=== PATIENT | female | born 1970 | race Caucasian/White ===

== ENCOUNTER 2016-12-14 20:35 | Emergency (ER) | payer MEDICAID, OTHER ==
[~2016-12-14] VITALS: Ht 157.5 cm; Wt 90.0 kg
[~2016-12-14 20:35] MED LIST: GLUC1000 PO; IBUP800T23 PO; LISI-360 PO
[2016-12-14 20:47] VITALS: BP 141/93; PULSE 106; RESP 18; TEMP 98; O2SAT 97
[2016-12-14] MEDS ORDERED: METF1000 PO (20:56)
[2016-12-14] MEDS ORDERED: IBUP800T23 PO (20:56)
[2016-12-14] MEDS ORDERED: LISI10TA3 PO (20:56)
--- NOTE | 2016-12-14 21:26 | PD ---
HPI . right foot pain x 2 days Chief Complaint: Pain: Acute or Chronic Time Seen by Provider: 21:25 Travel History International Travel<30 days: No Contact w/Intl Traveler<30days: No Traveled to known affect area: No History of Present Illness HPI 46-year-old female with history of hypertension, diabetes, left bundle branch block and history of stress fractures here with complaints of right foot pain. Patient does not recall any type of mechanism of injury but is now complaining of right lateral foot pain that started 2 days ago. Pain is very intense, but she does not want any pain medications and is very adamant about this. She denies any other symptoms. She denies any chest pain, shortness of breath, fever, chills, nausea, vomiting, abdominal pain or other joint pain. She is accompanied by her . PFSH Past Medical History Hx Anticoagulant Therapy: No Depression: Yes Heart Rhythm Problems: No Cardiac Catheterization: No Cardiovascular Problems: Yes (HTN) High Cholesterol: Yes Chest Pain: Yes Congestive Heart Failure: No Diabetes: Yes (TYPE2) Patient Takes Glucophage: Yes Diminished Hearing: No Hypertension: Yes Kidney Stones: Yes Musculoskeletal: Yes (CHRONIC RIGHT FOOT PAIN) Respiratory: Yes (cold induced asthma) Immunizations Current: Yes Triglycerides - High: Yes ?: Not : 4 Para: 3 Miscarriage: 1 Ovarian Cysts: Yes Past Surgical History Cholecystectomy: Yes Coronary Artery Bypass Graft: No Oral Surgery: Yes (TMJ) Family History Family Hypercholesterolemia: Yes (PARENTS) Social History Alcohol Use: Yes (rare) Tobacco Use: Yes (1/2 PPD) Substance Use: No Allergies-Medications (Allergen,Severity, Reaction): Coded Allergies: Biaxin (Verified Allergy, Mild, FACIAL SWELLING, 12/14/16) Morphine (Verified Allergy, Mild, NAUSEA/VOMITING, 12/14/16) Neurontin (Verified Allergy, Mild, FACIAL SWELLING, 12/14/16) Reported Meds & Prescriptions Reported Meds & Active Scripts Active Reported Metformin (Metformin HCl) 1,000 Mg Tab 1,000 Mg PO BIDPC With meals Lisinopril 10 Mg Tab 10 Mg PO DAILY Ibuprofen 800 Mg Tab 800 Mg PO TID Review of Systems General / Constitutional: No: Fever Eyes: No: Visual changes HENT: No: Headaches Cardiovascular: No: Chest Pain or Discomfort Respiratory: No: Shortness of Breath Gastrointestinal: No: Abdominal Pain Genitourinary: No: Dysuria Musculoskeletal: Positive: Pain (right lateral foot pain) Skin: No Rash Neurologic: No: Weakness Psychiatric: No: Depression Endocrine: No: Polydipsia Hematologic/Lymphatic: No: Easy Bruising Physical Exam Narrative GENERAL: AAO x 3, no acute distress, Well-nourished, well-developed patient. SKIN: Warm and dry. No visible rashes. Ecchymosis on lateral foot. EYES: No scleral icterus. No injection or drainage. ENT: No nasal drainage noted. Mucous membranes pink. Airway patent. NECK: Supple, trachea midline. No JVD. CARDIOVASCULAR: Regular rate and rhythm without murmurs, gallops, or rubs. RESPIRATORY: Breath sounds equal bilaterally. No accessory muscle use. No rhonchi or rales. GASTROINTESTINAL: Abdomen soft, non-tender, nondistended. EXTREMITIES: No cyanosis. + ecchymosis of left lateral foot and point tenderness. very minimal edema. BACK: Nontender without obvious deformity. No CVA tenderness. PSYCH: AAO x 3, normal affect. Data Data Last Documented VS Vital Signs Date Time Temp Pulse Resp B/P Pulse Ox O2 Delivery O2 Flow Rate FiO2 12/14/16 20:47 98.0 106 18 141/93 97 Orders Acetaminophen (Tylenol) (12/14/16 21:30) Foot, Complete ([id number]) (12/14/16 21:30) Ed Urine Pregnancytest Poc (12/14/16 21:30) MDM Medical Decision Making Medical Screen Exam Complete: Yes Emergency Medical Condition: Yes Medical Record Reviewed: Yes Differential Diagnosis sprain, foot fracture, less likely cellulitis Narrative Course 46-year-old female with history of hypertension, diabetes, left bundle branch block and history of stress fractures here with complaints of right foot pain. Patient does not recall any type of mechanism of injury but is now complaining of right lateral foot pain that started 2 days ago. Pain is very intense, but she does not want any pain medications and is very adamant about this. She denies any other symptoms. She denies any chest pain, shortness of breath, fever, chills, nausea, vomiting, abdominal pain or other joint pain. She is accompanied by her . Patient seen and examined. Recommend x-ray of the foot with the ecchymosis, edema and point tenderness. Xray is negative. I discussed with patient. advised micki shashaap. SOFÍA. Patient verbalized understanding of instructions, questions were answered, and thanked me for their care. I advised them if their condition worsens, please return to the nearest emergency room for further care. Diagnosis Primary Impression: Foot pain, right Additional Impression: Foot sprain Qualified Code: S93.601A - Foot sprain, right, initial encounter Patient Instructions: Foot Sprain (ED), General Instructions Additional Instructions: Please return to emergency department if your symptoms return or worsen. Follow up with your primary care provider. Take medications as prescribed. You can continue to use your ibuprofen for pain and inflammation. You can use ice on this area as it may help. Do not ice for more than 20 minutes at a time. Disposition: 01 DISCHARGE HOME Condition: Stable Rayna Chadwick Dec 14, 2016 21:26
[2016-12-14] MEDS ORDERED: ACETAMINOPHEN 325 MG TAB PO ONE (21:30)
--- NOTE | 2016-12-14 22:47 | RADHPO ---
EXAM DATE/TIME: 12/14/2016 21:52 [facility] COMPARISON: FOOT RIGHT COMPLETE ([id number]), March 27, 2016, 2:28. INDICATIONS : Right foot pain for 2 days with no known injury MEDICAL HISTORY : None. SURGICAL HISTORY : Sesamoidectomy, bunionectomy ENCOUNTER: Initial ACUITY: 3 days PAIN SCORE: 9/10 LOCATION: Right anterior foot FINDINGS: Three view examination of the right foot demonstrates no soft tissue swelling, dislocation, or fractu re. The tarsal bones appear intact. The interphalangeal and metatarsophalangeal joints are intact. The calcaneus is intact. Bony mineralization is normal. CONCLUSION: No acute disease. No significant change has occurred. Charlie Bates MD on December 14, 2016 at 22:44 Board Certified Radiologist. This report was verified electronically.
== END 2016-12-14 23:01 | disposition home or self-care (01) ==
LOC: PHEFT 20:35
DX: M79.671 Pain in right foot (principal); S93.601A Unspecified sprain of right foot, initial encounter; I10 Essential (primary) hypertension; E11.9 Type 2 diabetes mellitus without complications; I44.7 Left bundle-branch block, unspecified; E78.1 Pure hyperglyceridemia; E78.00 Pure hypercholesterolemia, unspecified; F17.200 Nicotine dependence, unspecified, uncomplicated; X58.XXXA Exposure to other specified factors, initial encounter; Z79.84 Long term (current) use of oral hypoglycemic drugs; Z86.59 Personal history of other mental and behavioral disorders; Z86.79 Personal history of other diseases of the circulatory system; Z87.442 Personal history of urinary calculi; Z87.39 Personal history of other diseases of the musculoskeletal system and connective tissue; Z87.09 Personal history of other diseases of the respiratory system
CPT/HCPCS: 73630; 84703; 99283

== ENCOUNTER 2017-06-11 17:50 | Emergency (ER) | payer SELFPAY ==
[~2017-06-11] VITALS: Ht 157.5 cm; Wt 88.0 kg
[~2017-06-11 17:50] MED LIST changes: -GLUC1000 PO; -LISI-360 PO; +LISI10TA3 PO; +METF1000 PO
[2017-06-11 17:54] VITALS: BP 181/92; PULSE 116; RESP 16; TEMP 97.9; O2SAT 99
[2017-06-11] MEDS ORDERED: GLYB5TAB3 PO (18:04)
[2017-06-11] MEDS ORDERED: ASPIRIN 81 MG CHEW TAB PO ONE (18:15)
[2017-06-11] MEDS ORDERED: LORazepam 2 MG/ML VIAL IV PUSH PRN (18:15)
[2017-06-11] MEDS ORDERED: SODIUM CHLORIDE 0.9% FLUSH 10 ML FLUSH IVF PRN (18:15)
--- NOTE | 2017-06-11 18:17 | PD ---
HPI . Chest pain and shortness of breath Chief Complaint: Anxiety Time Seen by Provider: 18:06 Travel History International Travel<30 days: No Contact w/Intl Traveler<30days: No Traveled to known affect area: No History of Present Illness HPI This patient presents with the chief complaint of chest pain and shortness of breath. Onset was about a week ago. Symptoms come and go. She states that her symptoms seemed be worse when she lays down and better when she sits up. She believes that her symptoms are caused from stress. Chest pain is described as a pressure-like sensation. She rates the pain 3/10. PFSH Past Medical History Hx Anticoagulant Therapy: No Depression: Yes Heart Rhythm Problems: No Cardiac Catheterization: No Cardiovascular Problems: Yes (HTN) High Cholesterol: Yes Chest Pain: Yes Congestive Heart Failure: No Diabetes: Yes (TYPE2) Patient Takes Glucophage: Yes Diminished Hearing: No Hypertension: Yes Kidney Stones: Yes Musculoskeletal: Yes (CHRONIC RIGHT FOOT PAIN) Respiratory: Yes (cold induced asthma) Immunizations Current: Yes Triglycerides - High: Yes Influenza Vaccination: No ?: Not LMP: 04/2017 : 4 Para: 3 Miscarriage: 1 Ovarian Cysts: Yes Past Surgical History Cholecystectomy: Yes Coronary Artery Bypass Graft: No Oral Surgery: Yes (TMJ) Family History Family Hypercholesterolemia: Yes (PARENTS) Social History Alcohol Use: Yes (rare) Tobacco Use: Yes (1/2 PPD) Substance Use: No Allergies-Medications (Allergen,Severity, Reaction): Coded Allergies: clarithromycin (Unverified Allergy, Mild, FACIAL SWELLING, 06/11/17) gabapentin (Unverified Allergy, Mild, FACIAL SWELLING, 06/11/17) morphine (Unverified Allergy, Mild, NAUSEA/VOMITING, 06/11/17) Reported Meds & Prescriptions Reported Meds & Active Scripts Active Reported Glyburide 5 Mg Tab 5 Mg PO DAILY Take with meals at the same time each day Metformin (Metformin HCl) 1,000 Mg Tab 1,000 Mg PO BIDPC With meals Lisinopril 10 Mg Tab 10 Mg PO DAILY Review of Systems Except as stated in HPI: all other systems reviewed are Neg General / Constitutional: No: Fever, Chills Cardiovascular: Positive: Chest Pain or Discomfort Respiratory: Positive: Shortness of Breath Psychiatric: Positive: Other (increased stress) Physical Exam Narrative GENERAL: Patient is lying on the stretcher with an increased respiratory rate. SKIN: Warm and dry. HEAD: Atraumatic. Normocephalic. EYES: Pupils equal and round. Extraocular movements are intact. ENT: No nasal bleeding or discharge. Mucous membranes pink and moist. NECK: Trachea midline. Neck is supple. CARDIOVASCULAR: Sinus tachycardia. Heart sounds are normal. RESPIRATORY: No accessory muscle use. Lungs are clear with full air movement throughout. GASTROINTESTINAL: Abdomen soft, non-tender, nondistended. MUSCULOSKELETAL: No obvious deformities. No edema. NEUROLOGICAL: Awake and alert. No obvious cranial nerve deficits. Motor grossly within normal limits. Normal speech. PSYCHIATRIC: Appropriate mood and affect; insight and judgment normal. Data Data Last Documented VS Vital Signs Date Time Temp Pulse Resp B/P (MAP) Pulse Ox O2 Delivery O2 Flow Rate FiO2 06/11/17 18:29 105 20 142/62 (88) 98 Room Air 06/11/17 17:54 97.9 Orders Orders Basic Metabolic Panel (Bmp) (06/11/17 18:06) Ckmb (Isoenzyme) Profile (06/11/17 18:06) Complete Blood Count With Diff (06/11/17 18:06) D-Dimer (06/11/17 18:06) Magnesium (Mg) (06/11/17 18:06) Prothrombin Time / Inr (Pt) (06/11/17 18:06) Act Partial Throm Time (Ptt) (06/11/17 18:06) Troponin I (06/11/17 18:06) Chest, Single Ap (06/11/17 18:06) Ecg Monitoring (06/11/17 18:06) Iv Access Insert/Monitor (06/11/17 18:06) Oximetry (06/11/17 18:06) Aspirin Chew (Aspirin Chew) (06/11/17 18:15) Sodium Chloride 0.9% Flush (Ns Flush) (06/11/17 18:15) Lorazepam Inj (Ativan Inj) (06/11/17 18:15) Labs Laboratory Tests Test 06/11/17 18:18 White Blood Count 11.5 TH/MM3 Red Blood Count 4.95 MIL/MM3 Hemoglobin 14.3 GM/DL Hematocrit 42.1 % Mean Corpuscular Volume 85.1 FL Mean Corpuscular Hemoglobin 29.0 PG Mean Corpuscular Hemoglobin Concent 34.0 % Red Cell Distribution Width 13.1 % Platelet Count 315 TH/MM3 Mean Platelet Volume 7.9 FL Neutrophils (%) (Auto) 64.2 % Lymphocytes (%) (Auto) 28.5 % Monocytes (%) (Auto) 4.6 % Eosinophils (%) (Auto) 2.1 % Basophils (%) (Auto) 0.6 % Neutrophils # (Auto) 7.4 TH/MM3 Lymphocytes # (Auto) 3.3 TH/MM3 Monocytes # (Auto) 0.5 TH/MM3 Eosinophils # (Auto) 0.2 TH/MM3 Basophils # (Auto) 0.1 TH/MM3 CBC Comment DIFF FINAL Differential Comment Prothrombin Time 10.2 SEC Prothromb Time International Ratio 0.9 RATIO Activated Partial Thromboplast Time 26.0 SEC D-Dimer Quantitative (PE/DVT) 0.43 MG/L FEU Blood Urea Nitrogen 9 MG/DL Creatinine 0.98 MG/DL Random Glucose 378 MG/DL Calcium Level 9.2 MG/DL Magnesium Level 2.0 MG/DL Sodium Level 133 MEQ/L Potassium Level 4.3 MEQ/L Chloride Level 100 MEQ/L Carbon Dioxide Level 22.9 MEQ/L Anion Gap 10 MEQ/L Estimat Glomerular Filtration Rate 61 ML/MIN Total Creatine Kinase 40 U/L Troponin I LESS THAN 0.02 NG/ML MDM Medical Decision Making Medical Screen Exam Complete: Yes Emergency Medical Condition: Yes Medical Record Reviewed: Yes (the patient was evaluated for chest pain is 2003. She had an echocardiogram done which showed some mild left ventricular hypertrophy and an ejection fraction of 5560 percent. She had a negative nuclear stress test.) Interpretation(s) EKG shows sinus tachycardia with a left bundle branch block. She has unifocal PVCs. The EKG is unchanged from previous with the exception of tachycardia and frequent PVCs. Differential Diagnosis Differential diagnosis of chest pain includes but is not limited to musculoskeletal pain, pulmonary embolism, acute coronary syndrome, pneumonia, pleurisy Narrative Course This patient presents complaining with chest pain and shortness of breath. She does have risk factors for coronary artery disease including hypertension and diabetes. However, she has had a negative workup 3 years ago. She has had symptoms for a week. She relates some distress. A cardiac evaluation has been ordered. She will be given a dose of aspirin. She will also be given a dose of Ativan pending her workup. The patient is feeling much better following Ativan. This patient has had symptoms for a week. This makes the probability of ACS is low. CBC & BMP Diagram 06/11/17 18:18 Calcium Level 9.2, Magnesium Level 2.0 Cardiac enzymes are negative. Disposition has been discussed with the patient and with her . Everyone thinks that this is anxiety. I will discharge her to home with a prescription for Ativan. Diagnosis Primary Impression: Chest pain Qualified Codes: R07.9 - Chest pain, unspecified Additional Impressions: Type 2 diabetes mellitus Qualified Codes: E11.9 - Type 2 diabetes mellitus without complications Dyslipidemia Labile hypertension Situational anxiety Patient Instructions: Anxiety (DC), General Instructions Med/Other Pt SpecificInfo: Prescription(s) given Scripts Lorazepam (Ativan) 1 Mg Tab 1 MG PO Q6H Y for ANXIETY AND/OR AGITATION, #10 TAB 0 Refills Prov: Alexandra Balbuena MD 06/11/17 Disposition: 01 DISCHARGE HOME Condition: Stable Alexandra Balbuena MD Jun 11, 2017 18:17
[2017-06-11 18:19] VITALS: BP 208/101; PULSE 110; RESP 18; O2SAT 97
[2017-06-11 18:22] LABS: AUTOMATED NEUTROPHIL # 7.4 TH/MM3 (1.8-7.7); BASOPHIL # 0.1 TH/MM3 (0-0.2); BASOPHIL % 0.6 % (0.0-2.0); EOSINOPHIL # 0.2 TH/MM3 (0-0.4); EOSINOPHIL % 2.1 % (0.0-4.0); HEMATOCRIT 42.1 % (35.0-46.0); HEMO FLAGS DIFF FINAL; LYMPH % 28.5 % (9.0-44.0); LYMPHOCYTE # 3.3 TH/MM3 (1.0-4.8); MEAN CELL VOLUME 85.1 FL (80.0-100.0); MONO % 4.6 % (0.0-8.0); NEUT % 64.2 % (16.0-70.0); PLATELET COUNT 315 TH/MM3 (150-450); RED BLOOD COUNT 4.95 MIL/MM3 (4.00-5.30); RED CELL DISTRIBUTION WIDTH 13.1 % (11.6-17.2); WHITE BLOOD COUNT 11.5 TH/MM3 (4.0-11.0)
[2017-06-11 18:29] VITALS: BP 142/62; PULSE 105; RESP 20; O2SAT 98
[2017-06-11 18:30] LABS: CHLORIDE 100 MEQ/L (98-107); POTASSIUM 4.3 MEQ/L (3.5-5.1); SODIUM (NA) 133 MEQ/L (136-145)
[2017-06-11 18:33] LABS: ANION GAP 10 MEQ/L (5-15); BICARBONATE 22.9 MEQ/L (21.0-32.0); BLOOD UREA NITROGEN 9 MG/DL (7-18)
[2017-06-11 18:36] LABS: GLOMERULAR FILTRATION RATE 61 ML/MIN (>89)
[2017-06-11 18:37] LABS: INTERNATIONAL NORMALIZED RATIO 0.9 RATIO; PROTHROMBIN TIME - PATIENT 10.2 SEC (9.8-11.6)
[2017-06-11 18:50] LABS: CREATINE KINASE 40 U/L (26-192)
[2017-06-11 19:00] VITALS: BP 155/58; PULSE 114; RESP 20; O2SAT 98
[2017-06-11] MEDS ORDERED: LORA-474 PO (19:00)
--- NOTE | 2017-06-11 19:26 | RADRPT ---
EXAM DATE/TIME: 06/11/2017 19:01 [facility] COMPARISON: CHEST SINGLE AP, March 27, 2016, 2:41. INDICATIONS : Short of breath, chest pain MEDICAL HISTORY : Diabetes mellitus type II. Hypertension SURGICAL HISTORY : None. ENCOUNTER: Initial ACUITY: 1 week PAIN SCORE: 3/10 LOCATION: Bilateral chest FINDINGS: The heart is mildly prominent. Mild central pulmonary vascular congestion is noted. CONCLUSION: 1. Mild central pulmonary vascular congestion. 2. Mild cardiomegaly. Yang Kimbrough MD on June 11, 2017 at 19:23 Board Certified Radiologist. This report was verified electronically.
[2017-06-11 19:58] VITALS: BP 143/73; TEMP 98.3
--- NOTE | 2017-06-13 15:07 | EKG ---
Date Performed: 06/11/2017 Time Performed: 18:02:46 PTAGE: 46 years EKG: SINUS TACHYCARDIA WITH FREQUENT VENTRICULAR PREMATURE COMPLEXES LEFT BUNDLE BRANCH BLOCK AB NORMAL ECG PREVIOUS TRACING : 08/04/2015 13.25 Since the prior tracing, the sinus tachycardia and the freq uent PVCs are new. DOCTOR: Loida Mcdermott Interpretating Date/Time 06/13/2017 15:06:45
== END 2017-06-11 19:47 | disposition home or self-care (01) ==
LOC: PHED 17:50
DX: R07.9 Chest pain, unspecified (principal); E11.9 Type 2 diabetes mellitus without complications; E78.5 Hyperlipidemia, unspecified; I11.9 Hypertensive heart disease without heart failure; F41.9 Anxiety disorder, unspecified; I44.7 Left bundle-branch block, unspecified; I51.7 Cardiomegaly; Z87.442 Personal history of urinary calculi
CPT/HCPCS: 71010; 80048; 82550; 83735; 84484; 85025; 85379; 85610; 85730; 93005; 96374; 99285; J2060

== ENCOUNTER 2017-09-30 14:16 | Emergency (ER) | payer SELFPAY ==
[~2017-09-30] VITALS: Ht 157.5 cm; Wt 85.0 kg
[~2017-09-30 14:16] MED LIST changes: +GLYB5TAB3 PO; -IBUP800T23 PO; +LORA-474 PO
[2017-09-30 14:20] VITALS: BP 170/78; PULSE 105; RESP 12; TEMP 98.4; O2SAT 99
--- NOTE | 2017-09-30 15:14 | PD ---
HPI Chief Complaint: Eye Problems/Injury Time Seen by Provider: 14:40 Travel History International Travel<30 days: No Contact w/Intl Traveler<30days: No Traveled to known affect area: No History of Present Illness HPI 46-year-old female states that since yesterday her vision to her right eye on the outer part has had waves go across it. She also states that she feels nauseous. She denies any other concurrent complaints including vision loss, eye pain or other acute concerns. She states she went to an eye doctor and they said she may have a retinal detachment but they were not sure and advised her to come here. Duration is since yesterday. Quality is wave like feeling. PFSH Past Medical History Hx Anticoagulant Therapy: No Depression: Yes Heart Rhythm Problems: No Cardiac Catheterization: No Cardiovascular Problems: Yes (HTN, LBBB) High Cholesterol: Yes Chest Pain: Yes Congestive Heart Failure: No Diabetes: Yes (TYPE2) Diminished Hearing: No Hypertension: Yes Kidney Stones: Yes Musculoskeletal: Yes (CHRONIC RIGHT FOOT PAIN) Respiratory: Yes (cold induced asthma) Immunizations Current: Yes Triglycerides - High: Yes : 4 Para: 3 Miscarriage: 1 Ovarian Cysts: Yes Past Surgical History Cholecystectomy: Yes Coronary Artery Bypass Graft: No Oral Surgery: Yes (TMJ) Family History Family Hypercholesterolemia: Yes (PARENTS) Social History Alcohol Use: Yes (rare) Tobacco Use: Yes (1/2 PPD) Substance Use: No Allergies-Medications (Allergen,Severity, Reaction): Coded Allergies: clarithromycin (Unverified Allergy, Mild, FACIAL SWELLING, 09/30/17) gabapentin (Unverified Allergy, Mild, FACIAL SWELLING, 09/30/17) morphine (Unverified Allergy, Mild, NAUSEA/VOMITING, 09/30/17) Reported Meds & Prescriptions Reported Meds & Active Scripts Active Ativan (Lorazepam) 1 Mg Tab 1 Mg PO Q6H PRN Reported Ambien (Zolpidem Tartrate) 5 Mg Tab 5 Mg PO HS PRN Zoloft (Sertraline HCl) 50 Mg Tab 50 Mg PO HS Metformin (Metformin HCl) 1,000 Mg Tab 1,000 Mg PO BIDPC With meals Lisinopril 10 Mg Tab 10 Mg PO DAILY Review of Systems Except as stated in HPI: all other systems reviewed are Neg Physical Exam Narrative GENERAL: Well-nourished, well-developed patient. SKIN: Warm and dry. HEAD: Normocephalic and atraumatic. EYES: No injection or drainage. Pupils equal, extraocular movement intact ENT: No nasal drainage noted. NECK: Supple, trachea midline. CARDIOVASCULAR: Regular rate and rhythm RESPIRATORY: Breath sounds equal bilaterally. No accessory muscle use. GASTROINTESTINAL: Abdomen soft, non-tender, nondistended. EXTREMITIES: No edema. NEUROLOGICAL: Awake and alert. Motor and sensory grossly within normal limits. Normal speech. Data Data Last Documented VS Vital Signs Date Time Temp Pulse Resp B/P (MAP) Pulse Ox O2 Delivery O2 Flow Rate FiO2 09/30/17 15:37 92 14 159/91 (113) 96 Room Air 09/30/17 14:20 98.4 Orders Orders Ed Discharge Order (09/30/17 16:11) [facility] Medical Decision Making Medical Screen Exam Complete: Yes Emergency Medical Condition: Yes Medical Record Reviewed: Yes (pmh confirmed) Differential Diagnosis Retinal detachment, central artery occlusion, floaters, vitreous hemorrhage.... Narrative Course Emergency department ocular US was performed with patient consent. Linear probe was used without note of retinal detachment Will discuss with ophthalmology on-call given isolated to one eye and since yesterday with normal neuro exam here Patient updated and agrees to outpatient follow-up, given return instructions Physician Communication Physician Communication dr morales states no additional testing here and to have patient follow-up in office on Monday Diagnosis Primary Impression: Blurry vision, right eye Referrals: Milly Morales MD call for appointment monday Additional Instructions: return as needed, keep blood pressure log Med/Other Pt SpecificInfo: No Change to Meds Disposition: 01 DISCHARGE HOME Condition: Stable Jessie Mendenhall MD Sep 30, 2017 15:14
[2017-09-30] MEDS ORDERED: ZOLO50TA PO (15:35)
[2017-09-30] MEDS ORDERED: AMBI5TAB PO (15:35)
[2017-09-30 15:37] VITALS: BP 159/91; PULSE 92; RESP 14; O2SAT 96
== END 2017-09-30 16:30 | disposition home or self-care (01) ==
LOC: NEPC 14:16
DX: H53.8 Other visual disturbances (principal); F17.200 Nicotine dependence, unspecified, uncomplicated; E11.9 Type 2 diabetes mellitus without complications; I10 Essential (primary) hypertension; F32.9 Major depressive disorder, single episode, unspecified; Z79.84 Long term (current) use of oral hypoglycemic drugs
CPT/HCPCS: 99281

== ENCOUNTER 2017-10-14 10:22 | Emergency (ER) | payer SELFPAY ==
[~2017-10-14] VITALS: Ht 157.5 cm; Wt 85.0 kg
[~2017-10-14 10:22] MED LIST changes: +AMBI5TAB PO; -GLYB5TAB3 PO; +ZOLO50TA PO
[2017-10-14 10:25] VITALS: BP 148/89; PULSE 142; RESP 20; TEMP 98.6; O2SAT 97
--- NOTE | 2017-10-14 10:58 | PD ---
HPI Chief Complaint: Skin Problem Time Seen by Provider: 10:39 Travel History International Travel<30 days: No Contact w/Intl Traveler<30days: No Traveled to known affect area: No History of Present Illness HPI This 46-year-old female is complaining of an abscess on her right leg. She has a history of diabetes. She does get recurrent abscesses which she generally handles at home. This one is been present for several days without draining. She is on metformin 2000 mg daily. She says her sugars been high. She was noted to be quite tachycardic and she says that she tends to run a fast heart rate. PFSH Past Medical History Hx Anticoagulant Therapy: No Anxiety: Yes Depression: Yes Heart Rhythm Problems: No Cardiac Catheterization: No Cardiovascular Problems: Yes (HTN, LBBB) High Cholesterol: Yes Chest Pain: Yes Congestive Heart Failure: No Diabetes: Yes (TYPE2) Patient Takes Glucophage: Yes Diminished Hearing: No Hypertension: Yes Kidney Stones: Yes Musculoskeletal: Yes (CHRONIC RIGHT FOOT PAIN) Respiratory: Yes (cold induced asthma) Immunizations Current: Yes Triglycerides - High: Yes Influenza Vaccination: No ?: Not LMP: NOW : 4 Para: 3 Miscarriage: 1 Ovarian Cysts: Yes Past Surgical History Cholecystectomy: Yes Coronary Artery Bypass Graft: No Oral Surgery: Yes (TMJ) Family History Family Hypercholesterolemia: Yes (PARENTS) Social History Alcohol Use: No Tobacco Use: Yes (/2 PPD) Substance Use: No Allergies-Medications (Allergen,Severity, Reaction): Coded Allergies: clarithromycin (Unverified Allergy, Mild, FACIAL SWELLING, 10/14/17) gabapentin (Unverified Allergy, Mild, FACIAL SWELLING, 10/14/17) morphine (Unverified Allergy, Mild, NAUSEA/VOMITING, 10/14/17) Reported Meds & Prescriptions Reported Meds & Active Scripts Active Ativan (Lorazepam) 1 Mg Tab 1 Mg PO Q6H PRN Reported Zoloft (Sertraline HCl) 50 Mg Tab 50 Mg PO HS Metformin (Metformin HCl) 1,000 Mg Tab 1,000 Mg PO BIDPC With meals Lisinopril 10 Mg Tab 10 Mg PO DAILY Review of Systems General / Constitutional: No: Fever, Chills Eyes: No: Diploplia, Blurred Vision HENT: No: Headaches, Vertigo Cardiovascular: No: Chest Pain or Discomfort, Palpitations Respiratory: No: Cough, Shortness of Breath Gastrointestinal: No: Vomiting, Diarrhea Genitourinary: Positive: Frequency, No: Urgency Musculoskeletal: No: Arthralgias Skin: Positive Lumps Endocrine: No: Heat Intolerance, Cold Intolerance Hematologic/Lymphatic: No: Easy Bruising Physical Exam Narrative GENERAL: Well-developed female SKIN: Focused skin assessment warm/dry. HEAD: Atraumatic. Normocephalic. EYES: Pupils equal and round. No scleral icterus. No injection or drainage. ENT: No nasal bleeding or discharge. Mucous membranes pink and moist. NECK: Trachea midline. No JVD. CARDIOVASCULAR: Regular rate and rhythm. No murmur appreciated. RESPIRATORY: No accessory muscle use. Clear to auscultation. Breath sounds equal bilaterally. GASTROINTESTINAL: Abdomen soft, non-tender, nondistended. Hepatic and splenic margins not palpable. MUSCULOSKELETAL: No obvious deformities. No clubbing. No cyanosis. No edema. There is an erythematous swollen area on the upper portion of the medial right thigh consistent with abscess NEUROLOGICAL: Awake and alert. No obvious cranial nerve deficits. Motor grossly within normal limits. Normal speech. PSYCHIATRIC: Appropriate mood and affect; insight and judgment normal. Data Data Last Documented VS Vital Signs Date Time Temp Pulse Resp B/P (MAP) Pulse Ox O2 Delivery O2 Flow Rate FiO2 10/14/17 11:22 18 10/14/17 10:32 142 10/14/17 10:25 98.6 148/89 (108) 97 Orders Orders Complete Blood Count With Diff (10/14/17 10:47) Basic Metabolic Panel (Bmp) (10/14/17 10:47) Sodium Chlor 0.9% 1000 Ml Inj (Ns 1000 M (10/14/17 11:00) Sodium Chlor 0.9% 1000 Ml Inj (Ns 1000 M (10/14/17 11:00) Cefazolin 2 Gm Premix (Ancef 2 Gm Premix (10/14/17 11:00) Ondansetron Inj (Zofran Inj) (10/14/17 11:00) Hydromorphone Pf Inj (Dilaudid Pf Inj) (10/14/17 11:00) Hydromorphone Pf Inj (Dilaudid Pf Inj) (10/14/17 11:00) Lidocaine 1% Inj (50 Ml) (Xylocaine 1% I (10/14/17 11:00) Lidocaine 1% Inj (Xylocaine 1% Inj) (10/14/17 11:15) Lidocaine 1% Inj (Xylocaine 1% Inj) (10/14/17 11:15) Insulin Human Regular Inj (Novolin R Inj (10/14/17 11:45) Labs Laboratory Tests Test 10/14/17 10:55 White Blood Count 13.2 TH/MM3 Red Blood Count 5.17 MIL/MM3 Hemoglobin 14.8 GM/DL Hematocrit 44.7 % Mean Corpuscular Volume 86.4 FL Mean Corpuscular Hemoglobin 28.6 PG Mean Corpuscular Hemoglobin Concent 33.0 % Red Cell Distribution Width 13.0 % Platelet Count 353 TH/MM3 Mean Platelet Volume 8.1 FL Neutrophils (%) (Auto) 68.7 % Lymphocytes (%) (Auto) 19.5 % Monocytes (%) (Auto) 4.6 % Eosinophils (%) (Auto) 3.1 % Basophils (%) (Auto) 4.1 % Neutrophils # (Auto) 9.1 TH/MM3 Lymphocytes # (Auto) 2.6 TH/MM3 Monocytes # (Auto) 0.6 TH/MM3 Eosinophils # (Auto) 0.4 TH/MM3 Basophils # (Auto) 0.5 TH/MM3 CBC Comment DIFF FINAL Differential Comment Blood Urea Nitrogen 11 MG/DL Creatinine 0.67 MG/DL Random Glucose 275 MG/DL Calcium Level 9.0 MG/DL Sodium Level 133 MEQ/L Potassium Level 4.0 MEQ/L Chloride Level 101 MEQ/L Carbon Dioxide Level 20.7 MEQ/L Anion Gap 11 MEQ/L Estimat Glomerular Filtration Rate 95 ML/MIN [facility] Medical Decision Making Medical Screen Exam Complete: Yes Emergency Medical Condition: Yes Medical Record Reviewed: Yes Differential Diagnosis Differential includes abscess, uncontrolled diabetes, Narrative Course Blood sugar is 275. She's been given some insulin and IV fluids as well as an initial dose of Keflex. I&D of the abscess has been performed. Patient will be released with prescription for Keflex Diagnosis Primary Impression: Abscess of right thigh Scripts Cephalexin (Keflex) 500 Mg Capsule 500 MG PO QID for Infection for 7 Days, CAP 0 Refills Prov: Jeremy Crockett MD 10/14/17 Disposition: 01 DISCHARGE HOME Condition: Stable Jeremy Crockett MD Oct 14, 2017 10:58
[2017-10-14] MEDS ORDERED: ceFAZolin 2 GM PREMIX 50 ML IV ONE (11:00)
[2017-10-14] MEDS ORDERED: SODIUM CHLOR 0.9% 1000 ML INJ 1,000 ML IV ONE ×2 (11:00)
[2017-10-14] MEDS ORDERED: HYDROmorphone HCL PF 2 MG/ML VIAL IV PUSH ONE ×2 (11:00)
[2017-10-14] MEDS ORDERED: ONDANSETRON HCL 4 MG/2 ML VIAL IV PUSH ONE (11:00)
[2017-10-14] MEDS ORDERED: LIDOCAINE HCL 1% 50 ML VIAL INFIL ONE (11:00)
[2017-10-14 11:05] LABS: AUTOMATED NEUTROPHIL # 9.1 TH/MM3 (1.8-7.7); BASOPHIL # 0.5 TH/MM3 (0-0.2); BASOPHIL % 4.1 % (0.0-2.0); EOSINOPHIL # 0.4 TH/MM3 (0-0.4); EOSINOPHIL % 3.1 % (0.0-4.0); HEMATOCRIT 44.7 % (35.0-46.0); HEMOGLOBIN 14.8 GM/DL (11.6-15.3); LYMPH % 19.5 % (9.0-44.0); LYMPHOCYTE # 2.6 TH/MM3 (1.0-4.8); MEAN CELL VOLUME 86.4 FL (80.0-100.0); MEAN CORPUSCULAR HEMOGLOBIN 28.6 PG (27.0-34.0); MEAN PLATELET VOLUME 8.1 FL (7.0-11.0); MONO % 4.6 % (0.0-8.0); MONOCYTE # 0.6 TH/MM3 (0-0.9); NEUT % 68.7 % (16.0-70.0); PLATELET COUNT 353 TH/MM3 (150-450); RED BLOOD COUNT 5.17 MIL/MM3 (4.00-5.30); WHITE BLOOD COUNT 13.2 TH/MM3 (4.0-11.0)
[2017-10-14] MEDS ORDERED: LIDOCAINE HCL 1% 30 ML VIAL INFIL ONE (11:15)
[2017-10-14] MEDS ORDERED: LIDOCAINE HCL 1% 20 ML VIAL INFIL ONE (11:15)
[2017-10-14 11:26] LABS: BICARBONATE 20.7 MEQ/L (21.0-32.0)
[2017-10-14 11:29] LABS: CREATININE 0.67 MG/DL (0.50-1.00)
[2017-10-14] MEDS ORDERED: INSULIN HUMAN REGULAR 1,000 UNITS/10 ML VIAL SQ ONE (11:45)
--- NOTE | 2017-10-14 11:47 | PD ---
Physical Exam Date Seen by Provider: Oct 14, 2017 Narrative I was asked to perform an I and D of the right groin area. INCISION AND DRAINAGE OF ABSCESS: The area was prepped and was sterilely draped. A subcutaneous wheal of 1% Xylocaine without epinephrine with a total number 1 mL was used to anesthetize the area properly. A number 11 scalpel was used to make a 5-mm incision across the area of the abscess. The abscess was drained, complex loculations were broken down, and irrigated with normal saline. Quarter inch iodoform packing was placed in the wound. Sterile dressing applied. Patient advised to return to the emergency department in 1-2 days for wound check and packing removal. Advised to keep area clean and dry for 24 hours. Data Data Last Documented VS Vital Signs Date Time Temp Pulse Resp B/P (MAP) Pulse Ox O2 Delivery O2 Flow Rate FiO2 10/14/17 11:22 18 10/14/17 10:32 142 10/14/17 10:25 98.6 148/89 (108) 97 Orders Orders Complete Blood Count With Diff (10/14/17 10:47) Basic Metabolic Panel (Bmp) (10/14/17 10:47) Sodium Chlor 0.9% 1000 Ml Inj (Ns 1000 M (10/14/17 11:00) Sodium Chlor 0.9% 1000 Ml Inj (Ns 1000 M (10/14/17 11:00) Cefazolin 2 Gm Premix (Ancef 2 Gm Premix (10/14/17 11:00) Ondansetron Inj (Zofran Inj) (10/14/17 11:00) Hydromorphone Pf Inj (Dilaudid Pf Inj) (10/14/17 11:00) Hydromorphone Pf Inj (Dilaudid Pf Inj) (10/14/17 11:00) Lidocaine 1% Inj (50 Ml) (Xylocaine 1% I (10/14/17 11:00) Lidocaine 1% Inj (Xylocaine 1% Inj) (10/14/17 11:15) Lidocaine 1% Inj (Xylocaine 1% Inj) (10/14/17 11:15) Insulin Human Regular Inj (Novolin R Inj (10/14/17 11:45) Labs Laboratory Tests Test 10/14/17 10:55 White Blood Count 13.2 TH/MM3 Red Blood Count 5.17 MIL/MM3 Hemoglobin 14.8 GM/DL Hematocrit 44.7 % Mean Corpuscular Volume 86.4 FL Mean Corpuscular Hemoglobin 28.6 PG Mean Corpuscular Hemoglobin Concent 33.0 % Red Cell Distribution Width 13.0 % Platelet Count 353 TH/MM3 Mean Platelet Volume 8.1 FL Neutrophils (%) (Auto) 68.7 % Lymphocytes (%) (Auto) 19.5 % Monocytes (%) (Auto) 4.6 % Eosinophils (%) (Auto) 3.1 % Basophils (%) (Auto) 4.1 % Neutrophils # (Auto) 9.1 TH/MM3 Lymphocytes # (Auto) 2.6 TH/MM3 Monocytes # (Auto) 0.6 TH/MM3 Eosinophils # (Auto) 0.4 TH/MM3 Basophils # (Auto) 0.5 TH/MM3 CBC Comment DIFF FINAL Differential Comment Blood Urea Nitrogen 11 MG/DL Creatinine 0.67 MG/DL Random Glucose 275 MG/DL Calcium Level 9.0 MG/DL Sodium Level 133 MEQ/L Potassium Level 4.0 MEQ/L Chloride Level 101 MEQ/L Carbon Dioxide Level 20.7 MEQ/L Anion Gap 11 MEQ/L Estimat Glomerular Filtration Rate 95 ML/MIN MDM Supervised Visit with CEDRIC: No Additional Instruction: Follow up with your primary care physician within 2-3 days. If your symptoms persist or worsen, return to the emergency department. Keep area clean and dry. Change dressings daily. If bleeding starts again, applied pressure and elevate the area. If he developed increased redness, swelling, or pain return to the emergency department. Sheyla Luciano Oct 14, 2017 11:47
[2017-10-14] MEDS ORDERED: CEPH-460 PO (11:57)
[2017-10-14 12:05] VITALS: PULSE 99; RESP 18; O2SAT 98
[2017-10-14] MEDS ORDERED: DIFL150T PO (12:09)
[2017-10-15] MEDS ORDERED: BACT800T5 PO (10:16)
== END 2017-10-14 12:20 | disposition home or self-care (01) ==
LOC: PHED 10:22
DX: L02.415 Cutaneous abscess of right lower limb (principal); E11.9 Type 2 diabetes mellitus without complications; F41.9 Anxiety disorder, unspecified; F32.9 Major depressive disorder, single episode, unspecified; I10 Essential (primary) hypertension; E78.00 Pure hypercholesterolemia, unspecified; J45.909 Unspecified asthma, uncomplicated; E78.1 Pure hyperglyceridemia; Z87.442 Personal history of urinary calculi
CPT/HCPCS: 10061; 80048; 85025; 96365; 96372; 96375; 99284; J0690; J1170; J1815; J2405; J7030

== ENCOUNTER 2017-10-15 09:59 | Emergency (ER) | payer SELFPAY ==
[~2017-10-15] VITALS: Ht 157.5 cm; Wt 86.4 kg
[~2017-10-15 09:59] MED LIST changes: -AMBI5TAB PO; +CEPH-460 PO; +DIFL150T PO
[2017-10-15 10:02] VITALS: BP 151/77; PULSE 87; RESP 16; TEMP 98.5; O2SAT 99
[2017-10-15] MEDS ORDERED: BACT800T5 PO (10:16)
--- NOTE | 2017-10-15 10:16 | PD ---
HPI Chief Complaint: Wound/Suture/Staple Re-Check Time Seen by Provider: 10:07 Travel History International Travel<30 days: No Contact w/Intl Traveler<30days: No Traveled to known affect area: No History of Present Illness HPI 46 year old female presents to the emergency department for evaluation of abscess to the right thigh. Patient was seen yesterday when incision and drainage was completed. Packing was placed and patient was prescribed Keflex. She was told to return today for reevaluation. Patient states that the area feels better at this time. She denies any worsening symptoms. She reports mild pain that radiates down the leg. No fevers or chills. Current pain is 3 out of 10, aching. Patient denies any associated symptoms. No exacerbating or alleviating factors. Moderate severity. PFSH Past Medical History Hx Anticoagulant Therapy: No Anxiety: Yes Depression: Yes Heart Rhythm Problems: No Cardiac Catheterization: No Cardiovascular Problems: Yes (HTN, LBB) High Cholesterol: Yes Chest Pain: Yes Congestive Heart Failure: No Diabetes: Yes (Metformin) Diminished Hearing: No Hypertension: Yes Kidney Stones: Yes Musculoskeletal: Yes (CHRONIC RIGHT FOOT PAIN) Respiratory: Yes (cold induced asthma) Immunizations Current: Yes Triglycerides - High: Yes ?: Not : 4 Para: 3 Miscarriage: 1 Ovarian Cysts: Yes Past Surgical History Cholecystectomy: Yes Coronary Artery Bypass Graft: No Oral Surgery: Yes (TMJ) Family History Family Hypercholesterolemia: Yes (PARENTS) Social History Alcohol Use: No Tobacco Use: Yes (1/2 PPD) Substance Use: No Allergies-Medications (Allergen,Severity, Reaction): Coded Allergies: clarithromycin (Unverified Allergy, Mild, FACIAL SWELLING, 10/15/17) gabapentin (Unverified Allergy, Mild, FACIAL SWELLING, 10/15/17) morphine (Unverified Allergy, Mild, NAUSEA/VOMITING, 10/15/17) Reported Meds & Prescriptions Reported Meds & Active Scripts Active Bactrim DS (Sulfamethoxazole-Trimethoprim) 800-160 Mg Tab 1 Tab PO BID Diflucan (Fluconazole) 150 Mg Tab 150 Mg PO ONCE Keflex (Cephalexin) 500 Mg Capsule 500 Mg PO QID 7 Days Ativan (Lorazepam) 1 Mg Tab 1 Mg PO Q6H PRN Reported Zoloft (Sertraline HCl) 50 Mg Tab 50 Mg PO HS Metformin (Metformin HCl) 1,000 Mg Tab 1,000 Mg PO BIDPC With meals Lisinopril 10 Mg Tab 10 Mg PO DAILY Review of Systems Except as stated in HPI: all other systems reviewed are Neg Physical Exam Narrative GENERAL: Well-nourished, well-developed female patient, ambulatory. Afebrile. SKIN: Focused skin assessment warm/dry. Patient has abscess to right medial thigh. Packing is already out of the small incision that is there. Very mild erythema. No active drainage. No lymphangitis. HEAD: Normocephalic. Atraumatic. EYES: No scleral icterus. No injection or drainage. NECK: Supple, trachea midline. No JVD or lymphadenopathy. CARDIOVASCULAR: Regular rate and rhythm without murmurs, gallops, or rubs. RESPIRATORY: Breath sounds equal bilaterally. No accessory muscle use. GASTROINTESTINAL: Abdomen soft, non-tender, nondistended. MUSCULOSKELETAL: No cyanosis, or edema. BACK: Nontender without obvious deformity. No CVA tenderness. Data Data Last Documented VS Vital Signs Date Time Temp Pulse Resp B/P (MAP) Pulse Ox O2 Delivery O2 Flow Rate FiO2 10/15/17 10:02 98.5 87 16 151/77 (101) 99 Orders Orders Ed Discharge Order (10/15/17 10:16) [facility] Medical Decision Making Medical Screen Exam Complete: Yes Emergency Medical Condition: Yes Medical Record Reviewed: Yes Differential Diagnosis Abscess recheck versus cellulitis versus failed outpatient treatment Narrative Course 46-year-old female presents to the emergency department recheck of abscess was incised and drained yesterday. She was prescribed Keflex. Overall, symptoms appear to be improving. Packing was are already out of the wound upon my examination. This area is cleaned with normal saline. Drainage is attempted to be expressed, but no drainage is expressed. Sterile dressing is applied. Patient is continue taking Keflex. I will add Bactrim to cover MRSA. She verbalizes agreement. She is instructed on proper wound care. She is return here for any acute worsening of symptoms. The patient was discharged in stable condition with instructions, including return instructions and follow up instructions. Diagnosis Primary Impression: Abscess of right thigh Referrals: Primary Care Physician call for appointment Patient Instructions: Abscess Follow-up (ED), General Instructions Additional Instructions: Warm, moist compresses for 15 minutes 4-5. Clean twice daily with soap and water and apply [id number] antibiotic. Continue Keflex until gone. Take Bactrim as directed until gone. Follow-up with your primary care physician. Return to the emergency department for any acute worsening of symptoms. Med/Other Pt SpecificInfo: Prescription(s) given Scripts Sulfamethoxazole-Trimethoprim (Bactrim DS) 800-160 Mg Tab 1 TAB PO BID for Infection, #20 TAB 0 Refills Prov: Wilda De Guzman 10/15/17 Disposition: 01 DISCHARGE HOME Condition: Stable Wilda De Guzman Oct 15, 2017 10:16
== END 2017-10-15 10:45 | disposition home or self-care (01) ==
LOC: PHEFT 09:59
DX: L02.415 Cutaneous abscess of right lower limb (principal); E78.00 Pure hypercholesterolemia, unspecified; E11.9 Type 2 diabetes mellitus without complications; I10 Essential (primary) hypertension; F17.210 Nicotine dependence, cigarettes, uncomplicated; Z79.84 Long term (current) use of oral hypoglycemic drugs
CPT/HCPCS: 99281; 99283